=== PATIENT | female | born 1980 | race Asian ===

== ENCOUNTER 2019-03-05 14:37 | Emergency (ER) | payer MEDICAID ==
[~2019-03-05] VITALS: Ht 160 cm; Wt 67.0 kg
[2019-03-05] MEDS ORDERED: SODIUM CHLORIDE 0.9% 1,000 ML IV ONE (15:46)
[2019-03-05 16:00] LABS: BASOPHILS % 0.9 % (0.0-2.0); CHLORIDE 106 mEq/L (98-107); EOSINOPHILS % 5.7 % (0.0-5.0); HEMATOCRIT. 42.4 % (36.0-48.0); HEMOGLOBIN. 14.6 g/dL (12.0-16.0); LYMPHOCYTES % 20.9 % (20.0-50.0); MEAN CORPUSCULAR HEMOGLOBIN 31.1 pg (28.0-32.0); MEAN CORPUSCULAR VOLUME 90.1 fL (81.0-99.0); MEAN PLATELET VOLUME 6.9 fl (7.4-10.4); MONOCYTES % 7.4 % (2.0-8.0); NEUTROPHILS % 65.1 % (40.0-76.0); PLATELET 214 x1000/uL (130-400); RED BLOOD CELL COUNT 4.71 mill/uL (4.2-5.4); RED CELL DISTRIBUTION WIDTH 13.8 % (11.6-14.6)
[2019-03-05 16:01] LABS: PROTHROMBIN TIME 10.3 sec (9.6-11.0)
[2019-03-05 16:02] LABS: CLARITY URINE CLEAR (CLEAR); COLOR URINE YELLOW (YELLOW); KETONES URINE NEGATIVE (NEGATIVE); LEUKOCYTE ESTERASE URINE TRACE (NEGATIVE); NITRITE URINE NEGATIVE (NEGATIVE); OCCULT BLOOD URINE 3+ (NEGATIVE); PH URINE 6.5 (4.5-8.0); PROTEIN URINE NEGATIVE (NEGATIVE); SPECIFIC GRAVITY URINE 1.003 (1.005-1.030); UROBILINOGEN URINE 0.2 E.U./dL (0.2-1.0)
[2019-03-05 16:11] LABS: B-HCG QUANTITATIVE 448 mIU/mL (<3)
[2019-03-05 17:31] VITALS: BP 153/96
== END 2019-03-05 18:12 | disposition home or self-care (01) ==
LOC: ER 14:37
DX: O03.9 Complete or unspecified spontaneous abortion without complication (principal); Z3A.08 8 weeks gestation of pregnancy; Z90.49 Acquired absence of other specified parts of digestive tract
CPT/HCPCS: 36415; 76801; 76817; 80053; 81003; 84702; 85025; 85610; 86850; 86900; 86901; 99284; J7030